=== PATIENT | female | born 1955 | race Caucasian/White ===

== ENCOUNTER → 2018-03-25 14:35 | Outpatient (CLI) | payer OTHER, SELFPAY ==
--- NOTE | 2018-03-25 | DI.RAD.S_ITS ---
This blank DEXA report has been sent in error by the PACS system. The correct and complete report will be forthcoming in 1-2 days. Thank you for your patience and understanding. Dictated by: Reji Bourne M.D. on 03/25/2018 at 16:38 Approved by: Reji Bourne M.D. on 03/25/2018 at 16:39
--- NOTE | 2018-03-25 | DI.MG.S_ITS ---
BILATERAL DIGITAL SCREENING MAMMOGRAM 3D/2D WITH CAD: 03/25/2018 CLINICAL: Routine screening. Family history of breast cancer. Comparison is made to exams dated: 12/29/2016 mammogram - [facility], 11/12/2015 mammogram, 05/22/2014 mammogram, and 03/29/2013 mammogram - [facility] [place]. There are scattered fibroglandular elements in both breasts. Current study was also evaluated with a Computer Aided Detection (CAD) system. No significant masses, calcifications, or other findings are seen in either breast. There has been no significant interval change. IMPRESSION: NEGATIVE There is no mammographic evidence of malignancy. A 1 year screening mammogram is recommended. This exam was interpreted at Station ID: [id number]. NOTE: For mammograms, a report in lay terms will be sent to the patient. Approximately 15% of breast malignancies will not be visualized mammographically. In the management of a palpable breast mass, a negative mammogram must not discourage biopsy of a clinically suspicious lesion. Electronically Signed By: Jay Jay reilly/zonia:03/26/2018 11:38:33 letter sent: Normal Exam ACR BI-RADS Category 1: Negative [id number]
== END ==
PROVIDERS: Visit Provider Nurse Practitioner Family
DX: Z12.31 Encounter for screening mammogram for malignant neoplasm of breast (principal); Z80.3 Family history of malignant neoplasm of breast; M85.852 Other specified disorders of bone density and structure, left thigh; Z78.0 Asymptomatic menopausal state; Z85.42 Personal history of malignant neoplasm of other parts of uterus
CPT/HCPCS: 77063; 77067; 77080

== ENCOUNTER → 2018-05-31 13:27 | Outpatient (CLI) | payer OTHER, SELFPAY ==
--- NOTE | 2018-05-31 | DI.CT.S_ITS ---
PROCEDURE: CT SINUS SCREEN WO CON INDICATIONS: SINUS PAIN TECHNIQUE: Noncontrast 3.0 mm axial images acquired from the frontal sinuses to the mid-sella, with coronal and sagittal reformats. For radiation dose reduction, the following was used: automated exposure control, adjustment of mA and/or kV according to patient size. COMPARISON: None. FINDINGS: Image quality: Excellent. Maxillary Sinuses: No bony remodeling or destruction. Moderate mucosal thickening is seen involving the anterior maxillary sinuses. Ethmoid Air Cells: No bony remodeling or destruction. Sinuses are clear. Sphenoid Sinuses: No bony remodeling or destruction. Sinuses are clear. Frontal Sinuses: No bony remodeling or destruction. Moderate to prominent mucosal thickening is seen involving the frontal sinuses. Ostiomeatal Complexes: Ostiomeatal complexes are patent, yet they are constitutionally narrowed. No Christen cells. Miscellaneous: Visualized intra-orbital contents are normal. No gena bullosa or paradoxical turbinate curvature. There is mild leftward nasal septal deviation. IMPRESSION: Focal paranasal sinus disease is seen involving the frontal sinuses and the maxillary sinuses. Dictated by: Flaco Dunbar M.D. on 05/31/2018 at 13:03 Approved by: Flaco Dunbar M.D. on 05/31/2018 at 13:05
== END ==
PROVIDERS: Family Provider Nurse Practitioner Family; PCP Nurse Practitioner Family; Visit Provider Nurse Practitioner Family
DX: J32.8 Other chronic sinusitis (principal); J34.89 Other specified disorders of nose and nasal sinuses
CPT/HCPCS: 70486

== ENCOUNTER → 2018-07-03 11:56 | Outpatient (REF) | payer OTHER, SELFPAY | LOC: LAB 11:56 | PROVIDERS: Family Provider Nurse Practitioner Family; PCP Nurse Practitioner Family; Visit Provider Nurse Practitioner Family | DX: H10.9 Unspecified conjunctivitis (principal) | CPT/HCPCS: 87070; 87205 ==

== ENCOUNTER → 2018-09-04 08:43 | Outpatient (CLI) | payer OTHER, SELFPAY ==
--- NOTE | 2018-09-04 | DI.US.S_ITS ---
PROCEDURE: US THYROID INDICATIONS: Nodules TECHNIQUE: Real-time scanning was performed of the thyroid gland, with image documentation. COMPARISON: None. FINDINGS: Right: Thyroid lobe measures 5.4 x 1.6 x 1.8 cm, and is homogeneous in echotexture. Left: Thyroid lobe measures 5.4 x 2.3 x 2.6 cm, and is homogenous in echotexture. Isthmus: 2-3 mm thick. Nodule number: 1 Location: Right mid-upper pole Size: 1.5 x 1.0 x 1.5 cm. Composition: Predominantly solid Echogenicity: Hypoechoic Shape: wider than tall. Margins: Smooth Echogenic foci: Punctate Total points: 7 ACR TI-RADS category: 5 Nodule number: 2 Location: Left inferior pole Size: 3.4 x 2.1 x 2.6 cm. Composition: Solid Echogenicity: Hypoechoic Shape: wider than tall. Margins: Smooth Echogenic foci: None Total points: 4 ACR TI-RADS category: 4 IMPRESSION: Bilateral thyroid nodules as above. Ultrasound-guided fine needle aspiration recommended for both lesions ACR TI-RADS definitions and recommendations: TI-RADS 1 (benign): 0 points. FNA not needed. TI-RADS 2 (not suspicious): 2 points. FNA not needed. TI-RADS 3 (mildly suspicious): 3 points. * FNA if 2.5 cm or larger, follow up if 1.5 cm or larger (at 1, 3, and 5 years). TI-RADS 4 (moderately suspicious): 4-6 points. * FNA if 1.5 cm or larger, follow up if 1 cm or larger (at 1, 2, 3, and 5 years). TI-RADS 5 (highly suspicious): 7 points or more. * FNA if 1 cm or larger, follow up if 0.5 cm or larger (every year for 5 years). Dictated by: Eliud Membreno M.D. on 09/04/2018 at 16:46 Approved by: Eliud Membreno M.D. on 09/04/2018 at 16:52
== END ==
PROVIDERS: PCP Nurse Practitioner Family; Visit Provider Otolaryngology
DX: E04.2 Nontoxic multinodular goiter (principal)
CPT/HCPCS: 76536

== ENCOUNTER → 2018-10-01 09:03 | Outpatient (CLI) | payer OTHER, SELFPAY ==
--- NOTE | 2018-10-01 | DI.US.S_ITS ---
PROCEDURE: US FINE NEEDLE ASPIRATION BIOPSY INDICATIONS: BILATERAL NODULES TECHNIQUE: The indications, alternatives, benefits, risks, and complications of the procedure were explained to the patient. Written informed consent was obtained and placed in the chart. The thyroid region was examined sonographically and a site was chosen for ultrasound guided percutaneous sampling. The skin was prepared and draped in the usual fashion, and anesthetized with 1% lidocaine infiltrated from the skin down to the thyroid gland. Multiple passes were then performed, with contents emptied into an appropriate pathology specimen container. A bandage was applied to the area of access at completion of the study. COMPARISON: [facility], US, US THYROID, 09/04/2018, 9:43. FINDINGS: Nodule #1 Location(s) of lesion(s) sampled: Inferior left thyroid lobe [place]: 25 gauge hypodermic needles. Number of passes: 10 Medications: 1% lidocaine for local anaesthesia. Complications: None. Nodule #2 Location(s) of lesion(s) sampled: Superior right thyroid lobe [place]: 25 gauge hypodermic needles. Number of passes: 10 Medications: 1% lidocaine for local anaesthesia. Complications: None. IMPRESSION: Successful ultrasound-guided fine needle aspiration of the left inferior thyroid nodule and the right superior thyroid nodule, with cytology results pending. Please see chart below for management recommendations based on cytology results. [facility] System ReportingRecommendationsNon-diagnostic* Repeat US-guided FNA, with on-site cytology evaluation if possible. * Repeated non-diagnostic nodules without high suspicion US features: close observation vs surgical consult. * Consider surgery if nodule has high suspicion US features, grows >20% in 2 dimensions on followup, or patient has clinical risk factors for malignancy. Benign* If nodule has high suspicion US features: repeat US and FNA within 12 months. * If nodule has low to intermediate suspicion US features: repeat US at 12-24 months. If nodule grows (20% increase in at least 2 dimensions, with minimal increase of 2 mm or >50% change in volume), or development of new suspicious US features, then repeat FNA or continue followup. * If nodule has very low suspicion US features: followup US at >24 months. Atypia of undetermined significance, follicular lesion of undetermined significanceRepeat FNA, molecular testing, followup US, or surgical consult.Follicular neoplasm, suspicious for follicular neoplasmSurgical consult; also consider molecular testing. Suspicious for malignancySurgical consult.MalignantSurgical consult. Dictated by: Lulu Johansen M.D. on 10/01/2018 at 12:30 Approved by: Lulu Johansen M.D. on 10/01/2018 at 12:34
--- NOTE | 2018-10-01 | PATH_ITS ---
Note [facility] Accession Number: [id number] TESTS RESULT FLAG UNITS REF RANGE LAB Clinician Provided Cytology Information No. of containers..01 ThinPrep Vial No. of containers..08 Previously Prepared Cytology Slide 01 L INFERIOR THYROID DIAGNOSIS: 02 LEFT INFERIOR THYROID BENIGN BETHESDA CATEGORY II. SPECIMEN CONSISTS OF BENIGN FOLLICULAR CELLS, HEMOSIDERIN-LADEN MACROPHAGES, COLLOID, AND BLOOD. THIS PATTERN IS CONSISTENT WITH A BENIGN FOLLICULAR NODULE. Pathologist ICD10: 02 E04.1 01 Scant cells - possible low cell / non-Dx 02 Mohini Nova MD, Pathologist NPI- [id number] Abraham Doty, Channel Sales Director ([facility]) 01 30 CC, PINK, CLEAR Also received 9 alcohol fixed, 9 quick stained slides, and 1 RNA vial. /HKH FLAG LEGEND: L-Low Normal,H-High Normal,LL-Alert Low,HH-Alert High <-Panic Low,>-Panic High,A-Abnormal,AA-Critical Abnormal Performed at: 01 =Z [facility] [address], [place] [address] Jay Jay Kim MD, 02 [facility] [address] [place] [id number] Mohini Nova MD, Performed at: 01 [facility] [address], [place], [place] [id number] MD Jay Jay Kim MD Phone: [phone]
--- NOTE | 2018-10-01 | PATH_ITS ---
Note [facility] Accession Number: [id number] TESTS RESULT FLAG UNITS REF RANGE LAB Clinician Provided Cytology Information No. of containers..01 ThinPrep Vial No. of containers..20 Previously Prepared Cytology Slide R SUPERIOR THYROID DIAGNOSIS: 02 RIGHT SUPERIOR THYROID BENIGN. BETHESDA CATEGORY II. SPECIMEN CONSISTS OF BENIGN FOLLICULAR CELLS, HEMOSIDERIN-LADEN MACROPHAGES, COLLOID, AND BLOOD. THIS PATTERN IS CONSISTENT WITH A BENIGN FOLLICULAR NODULE. Pathologist ICD10: 02 E04.1 01 About 1 cc of fluid removed from cystic nodule Mohini Nova MD, Pathologist NPI- [id number] Dago Hudson, Surgical Oncologist ([facility]) 01 30 CC, RED, CLEAR Also received 10 alcohol fixed, 10 quick stained slides, and 1 RNA vial. /HK FLAG LEGEND: L-Low Normal,H-High Normal,LL-Alert Low,HH-Alert High <-Panic Low,>-Panic High,A-Abnormal,AA-Critical Abnormal Performed at: 01 =Z [facility] [address], [place] [address] Jay Jay Kim MD, 02 [facility] [address] [place] [id number] Mohini Nova MD, Performed at: 01 [facility] [address], [place], [place] [id number] MD Jay Jay Kim MD Phone: [phone]
== END ==
PROVIDERS: PCP Nurse Practitioner Family; Visit Provider Otolaryngology
DX: E04.2 Nontoxic multinodular goiter (principal)
CPT/HCPCS: 10005; 10006

== ENCOUNTER → 2019-02-06 15:29 | Outpatient (CLI) | payer OTHER, SELFPAY | PROVIDERS: PCP Nurse Practitioner Family | DX: Z23 Encounter for immunization (principal) | CPT/HCPCS: 90471; 90686 ==

== ENCOUNTER → 2019-09-05 08:41 | Outpatient (CLI) | payer OTHER, SELFPAY ==
--- NOTE | 2019-09-05 | DI.US.S_ITS ---
PROCEDURE: US THYROID INDICATIONS: BILATERAL THYROID NODULE TECHNIQUE: Real-time scanning was performed of the thyroid gland, with image documentation. COMPARISON: [facility], US, US FINE NEEDLE ASPIRATION, 10/01/2018, 9:19. [facility], US, US THYROID, 09/04/2018, 9:43. FINDINGS: Right: Thyroid lobe measures 4.4 x 1.7 x 1.7 cm. Left: Thyroid lobe measures 5.3 x 2.4 x 2.6 cm. Isthmus: 3.4 mm thick. Nodule number: 1 Location: Right superior thyroid Size: 1.5 x 1.2 x 0.9 cm, prior 1.5 x 1 x 1.5 cm. Composition: Predominantly solid Echogenicity: Hypoechoic Shape: wider than tall. Margins: Smooth Echogenic foci: Punctate Total points: 7 ACR TI-RADS category: 5 Nodule number: 2 Location: Left inferior thyroid Size: 3.6 x 2.4 x 2.6 cm, prior report 3.4 x 2.1 x 2.6 cm. Composition: Solid Echogenicity: Hypoechoic Shape: wider than tall. Margins: Smooth Echogenic foci: None Total points: 4 ACR TI-RADS category: 4 IMPRESSION: Bilateral thyroid nodules are seen, which are stable compared to the prior examination. These nodules have been previously biopsied. Please correlate with biopsy results. ACR TI-RADS definitions and recommendations: TI-RADS 1 (benign): 0 points. FNA not needed. TI-RADS 2 (not suspicious): 2 points. FNA not needed. TI-RADS 3 (mildly suspicious): 3 points. * FNA if 2.5 cm or larger, follow up if 1.5 cm or larger (at 1, 3, and 5 years). TI-RADS 4 (moderately suspicious): 4-6 points. * FNA if 1.5 cm or larger, follow up if 1 cm or larger (at 1, 2, 3, and 5 years). TI-RADS 5 (highly suspicious): 7 points or more. * FNA if 1 cm or larger, follow up if 0.5 cm or larger (every year for 5 years). Dictated by: Flaco Dunbar M.D. on 09/05/2019 at 8:57 Approved by: Flaco Dunbar M.D. on 09/05/2019 at 9:01
== END ==
PROVIDERS: PCP Internal Medicine; Referring Provider Internal Medicine; Visit Provider Internal Medicine
DX: E04.2 Nontoxic multinodular goiter (principal)
CPT/HCPCS: 76536

== ENCOUNTER → 2019-09-29 12:58 | Outpatient (CLI) | payer OTHER, SELFPAY ==
--- NOTE | 2019-09-29 13:00 | DI.MG.S_ITS ---
BILATERAL DIGITAL DIAGNOSTIC MAMMOGRAM 3D/2D: 09/29/2019 CLINICAL: Right breast mass. Comparison is made to exams dated: 03/25/2018 mammogram, 12/29/2016 mammogram - [facility], and 11/12/2015 mammogram - [facility]. There are scattered fibroglandular elements in both breasts. There are benign calcifications in both breasts that are not significantly changed. No significant masses, calcifications, or other findings are seen in either breast. IMPRESSION: INCOMPLETE: NEEDS ADDITIONAL IMAGING EVALUATION There is no abnormality seen in the right breast to correspond with the area of clinical concern and palpable abnormality at 12 o'clock in the sub-areolar depth, however, ultrasound is recommended which is scheduled to immediately follow this examination. This exam was interpreted at Station ID: [id number]. NOTE: For mammograms, a report in lay terms will be sent to the patient. Approximately 15% of breast malignancies will not be visualized mammographically. In the management of a palpable breast mass, a negative mammogram must not discourage biopsy of a clinically suspicious lesion. Electronically Signed By: Dario Oswald M.D. aty/:09/29/2019 13:53:28 ACR BI-RADS Category 0: Incomplete [id number]
--- NOTE | 2019-09-29 13:00 | DI.US.S_ITS ---
ULTRASOUND OF RIGHT BREAST: 09/29/2019 CLINICAL: Palpable right breast lump. Comparison is made to exams dated: 09/29/2019 mammogram, 03/25/2018 mammogram, 12/29/2016 mammogram - [facility], and 11/12/2015 mammogram - [facility] [place]. Real-time ultrasound of the right breast was performed. [place] scale images of the real-time examination were reviewed. No significant abnormalities were seen sonographically in the right breast. IMPRESSION: BENIGN There is no sonographic evidence of malignancy. There is no abnormality seen in the right breast to correspond with the area of clinical concern and palpable abnormality at 12 o'clock, however, recommend clinical follow up for persistent or worsening symptoms or development of any clinically suspicious findings. A 1 year screening mammogram is recommended. Findings and recommendations were relayed to the patient during today's visit. This exam was interpreted at Station ID: [id number]. Electronically Signed By: Dario Oswald M.D. at/:09/29/2019 15:28:13 letter sent: Normal Exam Ultrasound BI-RADS: 2 Benign
== END ==
PROVIDERS: PCP Internal Medicine; Referring Provider Internal Medicine; Visit Provider Internal Medicine
DX: R92.8 Other abnormal and inconclusive findings on diagnostic imaging of breast (principal); N63.15 Unspecified lump in the right breast, overlapping quadrants
CPT/HCPCS: 76642; 77066; G0279

== ENCOUNTER → 2019-12-01 12:29 | Outpatient (CLI) | payer OTHER, SELFPAY ==
[2019-12-01 13:38] LABS: Add Manual Diff / Slide Review NO; Basophils Absolute Auto 100 /uL (0-100); Basophils Percent Auto 0.7 % (0-2); Eosinophils Absolute Auto 200 /uL (0-450); Eosinophils Percent Auto 2.5 % (2-4); Hematocrit 42.1 % (36-46); Hemoglobin 14.1 g/dL (12.0-16.0); Lymphocytes Absolute Auto 2300 /uL (1100-4500); Lymphocytes Percent Auto 33.7 % (25-40); Mean Corpuscular HGB Conc 33.5 % (30-36); Mean Corpuscular Hemoglobin 29.2 PG (26-34); Mean Corpuscular Volume 87.1 fL (80-100); Monocytes Absolute Auto 600 /uL (0-900); Monocytes Percent Auto 8.6 % (3-14); Neutrophils Absolute Auto 3800 /uL (1500-7000); Neutrophils Percent Auto 54.5 % (50-75); Platelet Count 213 X10^3/uL (150-400); Red Blood Cell Count 4.83 X10^6/uL (4.0-5.2); Red Cell Distribution Width 13.8 % (11.6-14.8); White Blood Cell Count 6.9 X10^3/uL (4.5-11.0)
[2019-12-01 14:03] LABS: Erythrocyte Sedimentation Rate 4 MM/HR (0-20)
[2019-12-01 14:15] LABS: TSH w/ Reflex to FT4 1.61 uIU/mL (0.47-4.68)
[2019-12-01 14:19] LABS: Alanine Aminotransferase 26 IU/L (<35); Albumin 4.4 g/dL (3.5-5.0); Albumin Globulin Ratio 1.3 (1.0-2.8); Alkaline Phosphatase 74 U/L (38-126); Aspartate Aminotransferase 30 IU/L (14-36); BUN Creatinine Ratio 24.6 (6-22); Bilirubin Total 0.5 mg/dL (0.2-1.3); Blood Urea Nitrogen 17 mg/dL (7-17); C-Reactive Protein Quant < 0.5 mg/dL (<1.0); Calcium 9.8 mg/dL (8.4-10.2); Carbon Dioxide 29 mmol/L (22-32); Chloride 102 mmol/L (98-107); Estimated Glomerular Filt Rate > 60.0 mL/min (>60); Globulin 3.3 g/dL (1.7-4.1); Glucose 86 mg/dL (80-110); HEMOLYSIS < 15 (0-50); Potassium 4.1 mmol/L (3.4-5.1); Sodium 138 mmol/L (137-145); Total Protein 7.7 g/dL (6.3-8.2)
== END ==
PROVIDERS: PCP Internal Medicine; Referring Provider Physician Assistant; Visit Provider Physician Assistant
DX: R42 Dizziness and giddiness (principal)
CPT/HCPCS: 36415; 80053; 84443; 85025; 85651; 86140

== ENCOUNTER → 2020-01-22 | Outpatient (CLI) | payer OTHER, SELFPAY | PROVIDERS: PCP Internal Medicine; Referring Provider Internal Medicine; Visit Provider Internal Medicine | DX: Z23 Encounter for immunization (principal) | CPT/HCPCS: 90471; 90686 ==

== ENCOUNTER → 2020-03-24 14:49 | Outpatient (CLI) | payer OTHER, SELFPAY ==
--- NOTE | 2020-03-24 | DI.RAD.S_ITS ---
PROCEDURE: XR WRIST LT MIN 3V INDICATIONS: LEFT WRIST PAIN, HISTORY OF FRACTURE TECHNIQUE: 4 views of the wrist were acquired. COMPARISON: None. FINDINGS: Bones: No fractures or dislocations. No suspicious bony lesions. Scaphoid view: No trauma to the scaphoid is found. Mild osteoarthritic changes noted at the distal scaphoid as it articulates against the base of the trapezium. Soft tissues: No suspicious soft tissue calcifications except for a small nonspecific calcification distal to the tip of the ulnar-styloid process. IMPRESSION: Old assess Ree ossicle or possible old avulsion fragment within the soft tissues distal to the ulnar-styloid process tip. Mild osteoarthritis, no fracture found. Dictated by: Shashi Easton M.D. on 03/24/2020 at 15:52 Approved by: Shashi Easton M.D. on 03/24/2020 at 15:53
== END ==
PROVIDERS: PCP Internal Medicine; Referring Provider Internal Medicine; Visit Provider Internal Medicine
DX: M25.532 Pain in left wrist (principal); M19.032 Primary osteoarthritis, left wrist
CPT/HCPCS: 73110

== ENCOUNTER → 2020-04-29 09:05 | Outpatient (CLI) | payer OTHER, SELFPAY ==
[2020-04-29] MEDS: COVID-19 VACC(MODERNA-1)/PF 100 MCG/0.5 ML VIAL IM (09:12)
== END ==
PROVIDERS: PCP Internal Medicine; Visit Provider Internal Medicine
DX: Z23 Encounter for immunization (principal)
CPT/HCPCS: 0011A; 91301

== ENCOUNTER → 2020-05-26 09:06 | Outpatient (CLI) | payer OTHER, SELFPAY ==
[2020-05-26] MEDS: COVID-19 VACC #2, MRNA(MOD) 100 MCG/0.5 ML VIAL IM (09:11)
== END ==
PROVIDERS: PCP Internal Medicine; Visit Provider Internal Medicine
DX: Z23 Encounter for immunization (principal)
CPT/HCPCS: 0012A; 91301

== ENCOUNTER → 2020-06-18 13:58 | Outpatient (CLI) | payer OTHER, SELFPAY ==
--- NOTE | 2020-06-18 13:59 | DI.RAD.S_ITS ---
PROCEDURE: FL WRIST INJECTION MR/CT LT INDICATIONS: Pain in left wrist COMPARISON: None. TECHNIQUE: After informed consent had been obtained, the wrist was examined fluoroscopically, and a site chosen for injection of the radiocarpal compartment from a dorsal approach. Skin was prepped and draped in a sterile fashion and 1% lidocaine infiltrated from the skin down to the articular surface. A hypodermic needle was then introduced into the articular space and a modest amount of contrast medium was instilled confirming intra-articular needle tip placement. This was followed by approximately 4 mL of a dilute gadolinium solution. Needle was removed and dressing was applied. The patient experienced no complications throughout the procedure and left the fluoroscopic suite in no apparent distress. FINDINGS: A single fluoroscopic spot image demonstrates intra-articular location to injected iodinated contrast. IMPRESSION: Successful fluoroscopic-guided administration of dilute Gadolinium solution for wrist MR arthrogram. Dictated by: Alfreda Rivera MD, PhD on 06/18/2020 at 14:43 Approved by: Alfreda Rivera MD, PhD on 06/18/2020 at 14:44
--- NOTE | 2020-06-18 14:00 | DI.MRI.S_ITS ---
PROCEDURE: MR WRIST LT W CON INDICATIONS: Pain in left wrist TECHNIQUE: After the administration of 3-4 mL of dilute intra-articular Gadolinium contrast into the radiocarpal compartment, coronal T1 spin echo with fat saturation and T2 fast spin echo with fat saturation, axial T1 spin echo and T2 fast spin echo with fat saturation, sagittal T1 spin echo with and without fat saturation through the wrist. COMPARISON: [facility], CR, XR WRIST LT MIN 3V, 03/24/2020, 15:59. [facility], RF, FL WRIST INJECTION MR/CT LT, 06/18/2020, 14:15. FINDINGS: Image quality: Excellent. Bones and cartilage: The carpal bones are normally aligned. No bone marrow contusions or fractures. No evidence for avascular necrosis. Scattered degenerative subchondral sclerosis and spurring. Radiocarpal joint degeneration. Small loose body adjacent to the ulnar styloid. Carpal ligaments: The scapholunate and lunotriquetral ligaments appear intact, without gadolinium extravasation into the mid-carpal compartment. The radioscaphocapitate and radiolunotriquetral ligaments appear intact. The arcuate ligament and short radiolunate ligament also appear normal. The dorsal intercarpal and radiotriquetral ligaments appear intact. On sagittal images, the pisohamate ligament appears intact. Triangular fibrocartilage complex: Mild fraying of the junction of the central disc and radial attachment of the TFCC. There is mild adjacent lunate partial-thickness chondral loss and subchondral cystic change. No gadolinium extravasation into the distal radioulnar joint. The adjacent meniscal homolog appears normal. The ulnar collateral ligament appears intact. The extensor carpi ulnaris tendon is normal in location and morphology. Tendons and soft tissues: The carpal tunnel structures appear normal, including the median nerve. The ulnar nerve appears normal within Guyon's canal. All six extensor tendon compartments demonstrate normal morphology, without pathologic tendon sheath fluid. No soft tissue ganglion cysts. IMPRESSION: Degenerative tear/fraying of the TFCC, with mild lunate and ulnar chondromalacia. Diffuse osteoarthritis as above Dictated by: Eliud Membreno M.D. on 06/18/2020 at 16:12 Approved by: Eliud Membreno M.D. on 06/18/2020 at 16:20
== END ==
PROVIDERS: PCP Internal Medicine; Referring Provider Orthopaedic Surgery; Visit Provider Orthopaedic Surgery
DX: M25.532 Pain in left wrist (principal); M19.132 Post-traumatic osteoarthritis, left wrist; M24.132 Other articular cartilage disorders, left wrist; M94.232 Chondromalacia, left wrist
CPT/HCPCS: 25246; 73222; 77002

== ENCOUNTER → 2021-02-03 | Outpatient (CLI) | payer OTHER, SELFPAY | PROVIDERS: PCP Internal Medicine; Referring Provider Internal Medicine; Visit Provider Internal Medicine | DX: Z23 Encounter for immunization (principal) | CPT/HCPCS: 90471; 90686 ==

== ENCOUNTER → 2021-03-04 14:44 | Outpatient (CLI) | payer OTHER, SELFPAY ==
[2021-03-04] MEDS: COVID-19 VACC #3, MRNA(MOD) 50 MCG/0.25 ML VIAL IM (14:48)
== END ==
PROVIDERS: PCP Internal Medicine; Visit Provider Internal Medicine
DX: Z23 Encounter for immunization (principal)
CPT/HCPCS: 0013A; 91301

== ENCOUNTER → 2021-04-09 12:56 | Outpatient (ROUT) | payer OTHER, SELFPAY ==
[2021-04-09 13:34] LABS: COVID19 -Nasal RAPID Negative (Negative)
== END ==
PROVIDERS: PCP Internal Medicine; Visit Provider Physician Assistant
DX: R05.9 Cough, unspecified (principal); R09.81 Nasal congestion
CPT/HCPCS: 87635

== ENCOUNTER → 2022-01-20 16:51 | Outpatient (CLI) | payer MEDICARE, OTHER, SELFPAY | PROVIDERS: PCP Internal Medicine; Referring Provider Internal Medicine; Visit Provider Internal Medicine | DX: Z23 Encounter for immunization (principal) | CPT/HCPCS: 90471; 90662 ==

== ENCOUNTER → 2022-03-01 12:26 | Outpatient (CLI) | payer MEDICARE, OTHER, SELFPAY ==
--- NOTE | 2022-03-01 12:29 | DI.RAD.S_ITS ---
PROCEDURE: XR DEXA AXIAL SKELETON INDICATIONS: ROUTINE SCREENING COMPARISON: [facility], CR, XR DEXA AXIAL SKELETON, 03/25/2018, 14:55. FINDINGS: This blank DEXA report has been sent in error by the PACS system. The correct and complete report will be forthcoming in 1-2 days. Thank you for your patience and understanding. Dictated by: Jarvis Issa M.D. on 03/01/2022 at 15:23 Approved by: Jarvis Issa M.D. on 03/01/2022 at 15:23
--- NOTE | 2022-03-01 12:29 | DI.MG.S_ITS ---
BILATERAL DIGITAL SCREENING MAMMOGRAM 3D/2D WITH CAD: 03/01/2022 CLINICAL: Routine screening. Family history of breast cancer. Comparison is made to exams dated: 09/29/2019 mammogram, 03/25/2018 mammogram, and 12/29/2016 mammogram - [facility]. There are scattered areas of fibroglandular density in both breasts (category b / 25%-50% glandular tissue). Current study was also evaluated with a Computer Aided Detection (CAD) system. There is a benign calcification in both breasts. No significant masses, calcifications, or other findings are seen in either breast. There has been no significant interval change. IMPRESSION: BENIGN There is no mammographic evidence of malignancy. A 1 year screening mammogram is recommended. Based on the Tyrer Cuzick model (a risk assessment model) the patient's lifetime risk is 6.5% and her 10 year risk is 3.2%. According to the ACR, ACS, and NCCN guidelines, an annual breast MRI exam along with mammogram is recommended if the patient's lifetime risk is 20% or greater. This exam was interpreted at Station ID: [id number]. NOTE: For mammograms, a report in lay terms will be sent to the patient. Approximately 15% of breast malignancies will not be visualized mammographically. In the management of a palpable breast mass, a negative mammogram must not discourage biopsy of a clinically suspicious lesion. Electronically Signed By: Justin so/zonia:03/01/2022 12:54:26 letter sent: Normal Exam ACR BI-RADS Category 2: Benign Finding(s) 3342F
== END ==
PROVIDERS: PCP Internal Medicine; Referring Provider Internal Medicine; Visit Provider Internal Medicine
DX: Z12.31 Encounter for screening mammogram for malignant neoplasm of breast (principal); Z78.0 Asymptomatic menopausal state; Z80.3 Family history of malignant neoplasm of breast; Z13.820 Encounter for screening for osteoporosis; M85.852 Other specified disorders of bone density and structure, left thigh; Z87.311 Personal history of (healed) other pathological fracture
CPT/HCPCS: 77063; 77067; 77080

== ENCOUNTER → 2022-09-22 | Outpatient (CLI) | payer MEDICARE, OTHER, SELFPAY ==
--- NOTE | 2022-10-13 05:26 | DI.NM.S_ITS ---
DATE OF SERVICE: PROCEDURE: Exercise stress test. INDICATIONS: Chest pain. CARDIAC STRESS: The patient underwent exercise stress test under the supervision of an attending staff. The patient walked on Eliceo protocol for 9 minutes and 37 seconds, achieved maximum heart rate of 160, which was 103% of target heart rate. Resting blood pressure 150/88 mmHg. Peak blood pressure 210/100 mmHg. DARLIN -51%. Baseline rhythm was sinus with QS complexes in V1 to V2 and poor R-wave progression. During stress, no convincing ischemic changes seen. No significant arrhythmias. No anginal symptoms. The patient had some shortness of breath. CONCLUSION: Exercise stress test is negative for inducible ischemia. Excellent exercise tolerance. DARLIN -51%. Mildly hypertensive blood pressure response. Peak blood pressure 210/100 and resting blood pressure was 150/88 mmHg. No significant arrhythmias. No anginal symptoms. Overall, low-risk exercise stress test. Krysten Mcgarry - STERLING/colin/janet doc#: [id number]/job#: [id number] dd: 09/22/2022 17:13:00 dt: 09/23/2022 00:21:00 DICTATING /COPIES TO: Pedro Luis Mclaughlin MD COPIES MNE: MARCELA;
== END ==
LOC: RAD 15:15
PROVIDERS: PCP Internal Medicine; Referring Provider Internal Medicine; Visit Provider Internal Medicine
DX: R07.89 Other chest pain (principal)
CPT/HCPCS: 93017

== ENCOUNTER → 2023-01-31 | Outpatient (CLI) | payer MEDICARE, OTHER, SELFPAY | PROVIDERS: PCP Internal Medicine; Referring Provider Family Medicine; Visit Provider Family Medicine | DX: Z23 Encounter for immunization (principal) | CPT/HCPCS: 90471; 90662 ==

== ENCOUNTER → 2023-08-30 15:24 | Outpatient (CLI) | payer MEDICARE, OTHER, SELFPAY ==
--- NOTE | 2023-08-30 15:26 | DI.US.S_ITS ---
PROCEDURE: US THYROID INDICATIONS: Thyroid nodule TECHNIQUE: Real-time scanning was performed of the thyroid gland, with image documentation. COMPARISON: [facility], US, US THYROID, 09/04/2018, 9:43. [facility], US, US THYROID, 09/05/2019, 9:08. FINDINGS: Thyroid: Right lobe measures 4.6 x 1.7 x 1.8 cm. Left lobe measures 5.3 x 2.5 x 2.5 cm. Isthmus is 3 cm thick. Echotexture is homogeneous. Nodule number: 1 Location: Right superior Size: 2.1 x 1.0 x 1.5 cm compared to 1.5 x 1.2 x 0.9 cm. Composition: Solid Echogenicity: Hypoechoic Shape: wider than tall. Margins: Smooth Echogenic foci: None Total points: 4 ACR TI-RADS category: 4 Nodule number: 2 Location: Left inferior Size: 3.3 x 2.3 x 2.5 cm compared to 3.6 x 2.4 x 2.6 cm. Composition: Solid Echogenicity: Hypoechoic Shape: wider than tall. Margins: Smooth Echogenic foci: None Total points: 4 ACR TI-RADS category: 4 IMPRESSION: Mild interval increase in size of lesion 1 compared to prior exam. Consider FNA and recommend correlation to prior FNAs if had been obtained. Stable appearance of lesion 2. Exam has been stable for 5 years. Continued follow-up at clinical discretion. ACR TI-RADS definitions and recommendations: TI-RADS 1 (benign): 0 points. FNA not needed. TI-RADS 2 (not suspicious): 2 points. FNA not needed. TI-RADS 3 (mildly suspicious): 3 points. * FNA if 2.5 cm or larger, follow up if 1.5 cm or larger (at 1, 3, and 5 years). TI-RADS 4 (moderately suspicious): 4-6 points. * FNA if 1.5 cm or larger, follow up if 1 cm or larger (at 1, 2, 3, and 5 years). TI-RADS 5 (highly suspicious): 7 points or more. * FNA if 1 cm or larger, follow up if 0.5 cm or larger (every year for 5 years). Dictated by: Adenike Melchor M.D. on 08/31/2023 at 15:09 Approved by: Adenike Melchor M.D. on 08/31/2023 at 15:12
--- NOTE | 2023-08-30 15:26 | DI.MG.S_ITS ---
BILATERAL DIGITAL SCREENING MAMMOGRAM 3D/2D WITH CAD: 08/30/2023 CLINICAL: Routine screening. Family history of breast cancer. Comparison is made to exams dated: 03/01/2022 mammogram, 09/29/2019 mammogram, 03/25/2018 mammogram, and 12/29/2016 mammogram - [facility]. There are scattered areas of fibroglandular density in both breasts (category b / 25%-50% glandular tissue). Current study was also evaluated with a Computer Aided Detection (CAD) system. There is a benign calcification in both breasts. No significant masses, calcifications, or other findings are seen in either breast. There has been no significant interval change. IMPRESSION: BENIGN There is no mammographic evidence of malignancy. A 1 year screening mammogram is recommended. Based on the Tyrer Cuzick model (a risk assessment model) the patient's lifetime risk is 6.1% and her 10 year risk is 3.1%. According to the ACR, ACS, and NCCN guidelines, an annual breast MRI exam along with mammogram is recommended if the patient's lifetime risk is 20% or greater. This exam was interpreted at Station ID: [id number]. NOTE: For mammograms, a report in lay terms will be sent to the patient. Approximately 15% of breast malignancies will not be visualized mammographically. In the management of a palpable breast mass, a negative mammogram must not discourage biopsy of a clinically suspicious lesion. Electronically Signed By: Fernando [email or web address]:08/31/2023 08:16:34 letter sent: Normal Exam ACR BI-RADS Category 2: Benign Finding(s) 3342F
== END ==
PROVIDERS: PCP Internal Medicine; Referring Provider Internal Medicine; Visit Provider Internal Medicine
DX: Z12.31 Encounter for screening mammogram for malignant neoplasm of breast (principal); E04.1 Nontoxic single thyroid nodule; R92.323 Mammographic fibroglandular density, bilateral breasts; Z80.3 Family history of malignant neoplasm of breast
CPT/HCPCS: 76536; 77063; 77067

== ENCOUNTER → 2024-05-15 14:49 | Outpatient (CLI) | payer MEDICARE, OTHER, SELFPAY ==
--- NOTE | 2024-05-15 14:51 | DI.RAD.S_ITS ---
PROCEDURE: XR FOOT LT MIN 3V INDICATIONS: pain / swelling @ 5th metatarsal top of foot TECHNIQUE: 3 views of the foot were acquired. COMPARISON: None. FINDINGS: Bones: No fractures or dislocations. No suspicious bony lesions. Soft tissues: No tibiotalar joint effusion. Achilles tendon appears normal. IMPRESSION: No acute bony abnormality. Cannot rule out soft tissue injury. Dictated by: Cory Tellez M.D. on 05/16/2024 at 10:29 Approved by: Cory Tellez M.D. on 05/16/2024 at 10:32
== END ==
PROVIDERS: PCP Internal Medicine; Referring Provider Physician Assistant; Visit Provider Physician Assistant
DX: S99.922A Unspecified injury of left foot, initial encounter (principal)
CPT/HCPCS: 73630

== ENCOUNTER → 2024-05-22 12:27 | Outpatient (CLI) | payer MEDICARE, OTHER, SELFPAY ==
--- NOTE | 2024-05-22 12:29 | DI.US.S_ITS ---
PROCEDURE: US HEAD/BRAIN COMPARISON: None. INDICATIONS: mass to front left frontal scalp/head FINDINGS: In the left frontal scalp/head area concern, there is a lesion measuring approximately 1.1 x 0.8 x 1.6 cm which may be osseous and is not well evaluated. IMPRESSION: Possible osseous lesion along the left frontal scalp in the area of concern measuring to 1.6 cm and not well evaluated by ultrasound. Consider CT for further evaluation. Dictated by: Azam Gonzalez M.D. on 05/22/2024 at 19:23 Approved by: Azam Gonzalez M.D. on 05/22/2024 at 19:25
--- NOTE | 2024-05-22 12:29 | DI.RAD.S_ITS ---
PROCEDURE: XR DEXA AXIAL SKELETON INDICATIONS: osteopenia COMPARISON: [facility], , XR DEXA AXIAL SKELETON, 03/01/2022, 14:06. FINDINGS: Lumbar Spine: Bone mineral density 0.923 g/cm2, T score -1.1, increased by 3.9%. Left Femoral Neck: Bone mineral density 0.58 g/cm2, T score -2.4. Left Hip: Bone mineral density 0.812 g/cm2, T score -1.1, decreased by 2.8%. Fracture Risk Calculation (when applicable): 10-year fracture risk of a major osteoporotic fracture 21 percent and of a hip fracture 4 percent. (T score greater or equal to -1.0 to: NORMAL) (T score from -1.1 to -2.4: OSTEOPENIA) (T score less than or equal to -2.5: OSTEOPOROSIS) IMPRESSION: Low bone mineral density (osteopenia) by WHO classification. Follow-up guidelines as follows: Osteoporosis: Consider a repeat DEXA and Vertebral Fracture Assessment (VFA) exam in 2 years or sooner if medically necessary, to reassess this patient's status. Osteopenia: Consider a repeat DEXA in 2-3 years to reassess this patient's status, or if there is a new clinical indication. Normal: Consider a repeat DEXA in 5 years or sooner, or if there is a new clinical indication. All treatment decisions require clinical judgment and consideration of individual patient factors, including patient preferences, comorbidities, previous drug use, risk factors not captured in the FRAX model (e.g., frailty, falls, vitamin D deficiency, increased bone turnover, interval significant decline in bone density ) and possible under- or over-estimation of fracture risk by FRAX. In addition, the NOF Guide recommends that FDA-approved medical therapies be considered in postmenopausal women and men age >= 50 years with a: * Hip or vertebral (clinical or morphometric) fracture * T-score of <=-2.5 at the spine or hip * Ten-year fracture probability by FRAX of >= 3% for hip fracture or >=20% for major osteoporotic fracture. Dictated by: Azam Gonzalez M.D. on 05/22/2024 at 19:51 Approved by: Azam Gonzalez M.D. on 05/22/2024 at 19:52
== END ==
PROVIDERS: PCP Internal Medicine; Referring Provider Internal Medicine; Visit Provider Internal Medicine
DX: M85.89 Other specified disorders of bone density and structure, multiple sites (principal); R22.0 Localized swelling, mass and lump, head
CPT/HCPCS: 76506; 77080

== ENCOUNTER → 2024-06-03 12:29 | Outpatient (CLI) | payer MEDICARE, OTHER, SELFPAY ==
--- NOTE | 2024-06-03 12:31 | DI.MRI.S_ITS ---
PROCEDURE: MR HEAD/BRAIN WO/W CON INDICATIONS: mass, US shows osseous involvement TECHNIQUE: Noncontrast axial T1 spin echo, axial T2 fast spin echo, sagittal and axial FLAIR, coronal T2 fast spin echo, axial gradient echo, axial diffusion and ADC through the brain. After the administration of contrast, axial and coronal and sagittal T1 spin echo with fat saturation through the brain. COMPARISON: [facility], US, HEAD/BRAIN, 05/22/2024, 13:00. FINDINGS: Image quality: Excellent. CSF spaces: Basal cisterns are patent. No extra-axial fluid collections. Ventricles are normal in size and shape. Brain: No midline shift. No intracranial bleeds or masses. No abnormal intracranial enhancement. There is cerebral volume loss for age. There is periventricular white matter chronic small vessel ischemic change. The brainstem appears normal. Diffusion-weighted images demonstrate no acute infarct. No chronic ischemic insults. Normal intravascular flow voids are present. Skull and face: Small left frontal osseous protuberance measuring approximately 17 x 5 x 15 mm. No associated enhancement. Calvarial marrow is normal in signal. Bilateral lens replacements. Otherwise, the orbits are unremarkable. Sinuses: Sinuses and mastoids appear clear. IMPRESSION: Small left frontal osseous protuberance measuring approximately 17 x 5 x 15 mm. There is no associated enhancement. This is likely a benign osseous extrusion. Consider follow-up imaging to assess stability. No acute intracranial abnormalities or abnormal intracranial enhancement. Mild age-related global volume loss and chronic microvascular ischemic changes. Dictated by: Azam Gonzalez M.D. on 06/03/2024 at 14:34 Approved by: Azam Gonzalez M.D. on 06/03/2024 at 14:39
== END ==
PROVIDERS: PCP Internal Medicine; Referring Provider Physician Assistant; Visit Provider Physician Assistant
DX: R22.0 Localized swelling, mass and lump, head (principal)
CPT/HCPCS: 70553; A9579

== ENCOUNTER → 2024-09-10 11:49 | Outpatient (CLI) | payer MEDICARE, OTHER, SELFPAY ==
[2024-09-10 13:19] LABS: Hematocrit 42.1 % (36-46); Hemoglobin 13.9 g/dL (12.0-16.0); Mean Corpuscular Hemoglobin 29.3 PG (26-34); Platelet Count 212 X10^3/uL (150-400); Red Blood Cell Count 4.73 X10^6/uL (4.0-5.2); Red Cell Distribution Width 13.2 % (11.6-14.8); White Blood Cell Count 7.3 X10^3/uL (4.5-11.0)
[2024-09-10 13:35] LABS: Alanine Aminotransferase 29 IU/L (<35); Albumin Globulin Ratio 1.7 (1.0-2.8); Alkaline Phosphatase 78 U/L (38-126); Aspartate Aminotransferase 37 IU/L (14-36); BUN Creatinine Ratio 27.4 (6-22); Bilirubin Total 0.7 mg/dL (0.2-1.3); Blood Urea Nitrogen 17 mg/dL (7-17); Calcium 9.9 mg/dL (8.4-10.2); Carbon Dioxide 26 mmol/L (22-32); Chloride 103 mmol/L (98-107); Cholesterol 264 mg/dL (140-199); Estimated Glomerular Filt Rate > 60 mL/min (>60); Globulin 2.9 g/dL (1.7-4.1); Glucose 90 mg/dL (70-99); HDL Cholesterol 91 mg/dL (40-60); HEMOLYSIS < 15 (0-50); LDL Cholesterol Calculated 150 mg/dL (<100); Potassium 4.3 mmol/L (3.4-5.1); Sodium 141 mmol/L (137-145); Total Protein 7.9 g/dL (6.3-8.2); Triglycerides 113 mg/dL (35-150)
[2024-09-10 14:05] LABS: TSH w/ Reflex to FT4 1.92 uIU/mL (0.47-4.68)
== END ==
PROVIDERS: PCP Internal Medicine; Referring Provider Internal Medicine; Visit Provider Internal Medicine
DX: E78.2 Mixed hyperlipidemia (principal); M85.80 Other specified disorders of bone density and structure, unspecified site; E04.1 Nontoxic single thyroid nodule
CPT/HCPCS: 36415; 80053; 80061; 84443; 85027

== ENCOUNTER → 2024-10-27 12:11 | Outpatient (CLI) | payer MEDICARE, OTHER, SELFPAY ==
--- NOTE | 2024-10-27 12:12 | DI.MG.S_ITS ---
MM screening mammo BI: 10/27/2024. BI-RADS: 1 CLINICAL: 68-year old female for bilateral screening mammogram. Tyrer-Cuzick lifetime risk of 5.9%. PRIOR EXAMS 08/30/2023, 03/01/2022, 09/29/2019, 03/25/2018. MAMMOGRAPHY TECHNIQUE: 2D and 3D (tomosynthesis) digital mammographic views obtained, with additional images as needed for full coverage. Current study was also evaluated with a Computer Aided Detection (CAD) system. DENSITY C. The breasts are heterogeneously dense, which may obscure small masses. MAMMOGRAPHY FINDINGS Bilateral: No suspicious mass, asymmetry, microcalcification, or other abnormality seen. IMPRESSION: * No evidence of malignancy. RECOMMENDATIONS Bilateral * Annual screening mammography. OVERALL ASSESSMENT CATEGORY BI-RADS-1: Negative. The [employer] recommends annual screening mammography beginning at age 40 for women with average risk of breast cancer. ELECTRONICALLY SIGNED: Laureen Victoria M.D. on 10/27/2024 at 11:22:15 PM PT Interpreting Station ID: [id number]
--- NOTE | 2024-10-27 12:12 | DI.US.S_ITS ---
PROCEDURE: US THYROID INDICATIONS: FOLLOW-UP NODULES TECHNIQUE: Real-time scanning was performed of the thyroid gland, with image documentation. COMPARISON: [facility], US, US THYROID, 08/30/2023, 15:35., thyroid ultrasound 09/05/2019 FINDINGS: Thyroid: Right lobe measures 4.4 x 1.6 x 1.8 cm. Left lobe measures 6.0 x 2.3 x 2.2 cm. Isthmus is 0.35 cm thick. Echotexture is homogeneous. Nodule number: 1 Location: Right superior Size: 1.9 x 1.2 x 1.5 cm, previously 2.1 x 1.0 x 1.5 cm. Composition: Solid Echogenicity: Hypoechoic Shape: wider than tall. Margins: Smooth Echogenic foci: None Total points: 4 ACR TI-RADS category: TI-RADS 4 Nodule number: 2 Location: Left inferior Size: 3.9 x 2.5 x 2.8 cm, previously 3.3 x 2.2 x 2.5 cm 08/30/2023, previously 3.6 x 2.6 x 2.6 on 09/05/2019. Composition: Solid Echogenicity: Hypoechoic Shape: wider than tall. Margins: Smooth Echogenic foci: None Total points: 4 ACR TI-RADS category: TI-RADS 4 IMPRESSION: 1. Right superior 1.9 cm TI-RADS 4 nodule, decreased in size since prior ultrasound and not significantly changed since ultrasound in August 2019. Continued follow-up at clinical discretion. 2. Left inferior 3.9 cm TI-RADS 4 nodule, not significantly changed since ultrasounds dating back to August 2019. Continued follow-up at clinical discretion. ACR TI-RADS definitions and recommendations: TI-RADS 1 (benign): 0 points. FNA not needed. TI-RADS 2 (not suspicious): 2 points. FNA not needed. TI-RADS 3: 3 points. * FNA if 2.5 cm or larger, follow up if 1.5 cm or larger (at 1, 3, and 5 years). TI-RADS 4: 4-6 points. * FNA if 1.5 cm or larger, follow up if 1 cm or larger (at 1, 2, 3, and 5 years). TI-RADS 5: 7 points or more. * FNA if 1 cm or larger, follow up if 0.5 cm or larger (every year for 5 years). Approved by: Kim Bhat M.D.,Ph.D. on 10/27/2024 at 15:06
== END ==
PROVIDERS: PCP Internal Medicine; Referring Provider Internal Medicine; Visit Provider Internal Medicine
DX: Z12.31 Encounter for screening mammogram for malignant neoplasm of breast (principal); E04.1 Nontoxic single thyroid nodule; R92.333 Mammographic heterogeneous density, bilateral breasts
CPT/HCPCS: 76536; 77063; 77067

== ENCOUNTER → 2024-12-30 10:33 | Outpatient (CLI) | payer MEDICARE, OTHER, SELFPAY ==
--- NOTE | 2024-12-30 10:35 | DI.MRI.S_ITS ---
PROCEDURE: MR WRIST LT WO CON INDICATIONS: Left carpal tunnel, swelling, pain TECHNIQUE: Noncontrast coronal proton density fast spin echo and T2 fast spin echo with fat saturation; coronal 3-D gradient echo, axial T1 spin echo and T2 fast spin echo with fat saturation, sagittal T1 spin echo through the wrist. COMPARISON: [facility], CR, XR WRIST LT MIN 3V, 12/04/2024, 16:37. FINDINGS: Image quality: Excellent. Bones and cartilage: Severe degenerative change of the 1st carpometacarpal joint, with mild subchondral cystic changes, marrow edema, and multiple subjacent small ganglion cyst. Moderate degenerative changes of the triscaphe joint. Severe degenerative change of the pieces form and the triquetrum articulation with moderate amount of fluid in the pisiform recess. There is a 5 mm intra-articular body in the pisiform recess, with reactive marrow edema (4:5). Additional multifocal mild subchondral cystic changes and marrow edema in the carpal bones, most pronounced at the proximal scaphoid and the lunate, favoring degenerative. No acute fracture. Mild marrow edema at the ulnar styloid, reactive. Carpal ligaments: The scapholunate and lunotriquetral ligaments appear intact. In the absence of intra-articular contrast, the extrinsic carpal ligaments are not well identified. On sagittal images, the pisohamate ligament appears intact. Triangular fibrocartilage complex: Central disc perforation (5:8). Tendons and soft tissues: The flexor tendons are unremarkable. Mild tenosynovitis of the 2nd extensor compartment, at the level of the distal radius. Severe tenosynovitis of the 4th extensor compartment with multi focal longitudinal split tear, at the level of the distal radius, extending distally to the level of the metacarpal base. Mild tenosynovitis of the extensor carpi ulnaris with low-grade interstitial tear, at the level of the ulnar styloid. Additional small ganglion cyst volar to the 3rd carpometacarpal joint, measuring 5 mm (4:7). IMPRESSION: 1. Degenerative changes, most pronounced and severe at the 1st carpometacarpal joint and at the pisiform and triquetrum articulation. 2. 5 mm intra-articular body in the pisiform recess with reactive marrow edema. 3. Central disc perforation of the triangular fibrocartilage. 4. Severe tenosynovitis of the 4th extensor tendon compartment with multifocal longitudinal split tear. 5. Mild tenosynovitis with low-grade tear of the extensor carpi ulnaris. 6. Mild reactive marrow edema at the ulnar styloid. 7. Multiple small ganglion cysts as described above. Dictated by: Claire Forman M.D. on 12/30/2024 at 12:42 Approved by: Claire Forman M.D. on 12/30/2024 at 12:52
== END ==
LOC: MRI 10:34
PROVIDERS: PCP Internal Medicine; Referring Provider Internal Medicine; Visit Provider Internal Medicine
DX: S66.812A Strain of other specified muscles, fascia and tendons at wrist and hand level, left hand, initial encounter (principal); M24.131 Other articular cartilage disorders, right wrist; M67.432 Ganglion, left wrist; M65.932 Unspecified synovitis and tenosynovitis, left forearm; G56.00 Carpal tunnel syndrome, unspecified upper limb
CPT/HCPCS: 73221